=== PATIENT | male | born 1975 | race Caucasian/White ===

== ENCOUNTER → 2020-09-14 08:50 | Outpatient (BNVA) | payer MEDICARE, MEDICAID, SELFPAY | PROVIDERS: PCP Internal Medicine; Visit Provider Physician Assistant ==

== ENCOUNTER → 2020-09-26 08:03 | Outpatient (BNVA) | payer MEDICARE, MEDICAID, SELFPAY | PROVIDERS: PCP Internal Medicine; Visit Provider Surgery | DX: E66.01 Morbid (severe) obesity due to excess calories (principal); I48.91 Unspecified atrial fibrillation; I10 Essential (primary) hypertension; E78.5 Hyperlipidemia, unspecified; G47.30 Sleep apnea, unspecified; J45.909 Unspecified asthma, uncomplicated; K21.9 Gastro-esophageal reflux disease without esophagitis | CPT/HCPCS: Q3014 ==

== ENCOUNTER → 2020-11-22 10:36 | Outpatient (BNVA) | payer MEDICARE, MEDICAID, SELFPAY | PROVIDERS: PCP Internal Medicine; Referring Provider Internal Medicine; Visit Provider Physician Assistant ==

== ENCOUNTER → 2021-01-02 09:17 | Outpatient (BNVA) | payer MEDICARE, MEDICAID, SELFPAY | PROVIDERS: PCP Internal Medicine; Referring Provider Internal Medicine; Visit Provider Physician Assistant ==

== ENCOUNTER → 2021-01-04 07:48 | Outpatient (BNVA) | payer MEDICARE, MEDICAID, SELFPAY | PROVIDERS: PCP Internal Medicine; Visit Provider Surgery | CPT/HCPCS: Q3014 ==

== ENCOUNTER → 2022-07-19 08:55 | Outpatient (BNVA) | payer MEDICARE, MEDICAID, SELFPAY | PROVIDERS: PCP Internal Medicine; Referring Provider Internal Medicine; Visit Provider Physician Assistant ==

== ENCOUNTER → 2022-08-13 13:17 | Outpatient (BNVA) | payer MEDICARE, MEDICAID, SELFPAY | PROVIDERS: PCP Internal Medicine; Visit Provider Physician Assistant Surgical | DX: E66.01 Morbid (severe) obesity due to excess calories (principal); Z68.41 Body mass index [BMI] 40.0-44.9, adult | CPT/HCPCS: 99212 ==

== ENCOUNTER 2022-08-15 07:38 | Outpatient (REF) | payer MEDICARE, MEDICAID, SELFPAY ==
--- NOTE | ~2022-08-15 | XR_ITS ---
EXAMINATION: XR CHEST CLINICAL INFORMATION: Obesity COMPARISON: None available. TECHNIQUE: 2 views of the chest were obtained. FINDINGS: No significant abnormality is noted involving the heart, lungs, mediastinum, bony thorax or soft tissues. XR/XR chest 2V IMPRESSION: Unremarkable examination.
[2022-08-15 07:53] LABS: MANUAL DIFF FLAG NO
[2022-08-15 08:32] LABS: Basophils Percent Auto 0.7 % (0-2); Eosinophils Absolute Auto 0.1 X10*3/uL (0.0-0.4); Eosinophils Percent Auto 2.1 % (0-4); Hemoglobin 15.3 g/dl (14.0-18.0); Imm Gran Abs Auto 0.01 X10*3/uL (0.00-0.03); Imm Gran Pct Auto 0.2 % (0.0-0.4); Lymphocytes Absolute Auto 1.9 X10*3/uL (1.2-4.9); Lymphocytes Percent Auto 34.1 % (20-40); Mean Corpuscular HGB Conc 33.3 g/dl (31.0-36.0); Mean Corpuscular Hemoglobin 28.5 pg (27.0-33.0); Mean Corpuscular Volume 85.7 fL (80.0-98.0); Mean Platelet Volume 10.6 fL (9.4-12.4); Monocytes Absolute Auto 0.4 X10*3/uL (0.1-1.2); Monocytes Percent Auto 7.1 % (2-11); Neutrophils Absolute Auto 3.2 x10*3/uL (2.0-8.3); Neutrophils Percent Auto 55.8 % (45-73); Platelet Count 151 X10*3/uL (160-400); Red Blood Count 5.37 X10*6/uL (4.60-5.80); Red Cell Distribution Width 12.7 % (11.0-16.0); White Blood Count 5.7 X10*3/uL (4.8-10.8)
[2022-08-15 08:39] LABS: Estimated Average Glucose 258 mg/dL; Hemoglobin A1c % 10.6 %
[2022-08-15 09:12] LABS: Alanine Aminotransferase 110 U/L (0-40); Albumin Level 4.2 g/dL (3.5-5.0); Alkaline Phosphatase 69 U/L (39-117); Anion Gap 18 (12-20); Aspartate Amino Transferase 106 U/L (5-37); Bilirubin Total 0.6 mg/dL (0.0-1.0); Blood Urea Nitrogen 10 mg/dL (9-16); C Reactive Protein 0.63 mg/dL (< or = 0.50); Calcium 9.6 mg/dL (8.4-10.2); Carbon Dioxide 22 mmol/L (22-29); Chloride 104 mmol/L (96-108); Cholesterol 150 mg/dL; Estimated Glomerular Filt Rate > 60; Glucose Random 199 mg/dL (60-115); HDL Cholesterol 32 mg/dL; Iron 136 mcg/dL (45-160); LDL Cholesterol Calculated 82 mg/dl; Percent Iron Saturation 43 % (15-50); Potassium 3.9 mmol/L (3.3-5.1); Sodium 140 mmol/L (135-145); Total Iron Binding Capacity 320 mcg/dL (228-428); Total Protein 7.1 g/dL (6.5-8.0); Triglycerides 183 mg/dL; Unsaturated Iron Binding 184 ug/dL
[2022-08-15 09:40] LABS: Ferritin 474 ng/mL (20-250); Folate 12.7 ng/mL (> or = 4.0); Insulin 26 uU/mL (2-29); TSH reflex Free T4 1.43 uIU/mL (0.32-4.0); Vitamin B12 368 pg/mL (200-900); Vitamin D 25-OH Total 24.1 ng/mL (>30)
--- NOTE | 2022-08-15 11:35 | ECG_ITS ---
Test Reason : e66.01 Blood Pressure : / mmHG Vent. Rate : 088 BPM Atrial Rate : 088 BPM P-R Int : 188 ms QRS Dur : 084 ms QT Int : 376 ms P-R-T Axes : 053 -06 017 degrees QTc Int : 454 ms Normal sinus rhythm Nonspecific T wave abnormality Abnormal ECG No previous ECGs available Referred By: Luis Miguel Smith Electronically Signed By:Rudy Prado
[2022-08-17 15:48] LABS: Calcium (PTHI) 9.6 mg/dL (8.6-10.3); PTHI 70 pg/mL (16-77)
[2022-08-20 18:14] LABS: Zinc 77 mcg/dL (60-130)
[2022-08-22 15:58] LABS: Vitamin A 54 mcg/dL (38-98)
[2022-08-23 05:48] LABS: Vitamin B1 10 nmol/L (8-30)
== END 2022-08-15 07:39 | disposition home or self-care (01) ==
LOC: HO.XRAY 07:38
PROVIDERS: PCP Internal Medicine; Visit Provider Physician Assistant Surgical
DX: E66.01 Morbid (severe) obesity due to excess calories (principal); I10 Essential (primary) hypertension; E78.5 Hyperlipidemia, unspecified; E11.9 Type 2 diabetes mellitus without complications; Z20.2 Contact with and (suspected) exposure to infections with a predominantly sexual mode of transmission
CPT/HCPCS: 36415; 71046; 80053; 80061; 82306; 82607; 82728; 82746; 83036; 83525; 83540; 83970; 84425; 84443; 84590; 84630; 85025; 86140; 93005

== ENCOUNTER 2022-09-04 09:45 | Outpatient (REF) | payer MEDICARE, MEDICAID, SELFPAY ==
[2022-09-05 13:49] LABS: H Pylori Breath Test Negative (Negative)
== END 2022-09-04 09:46 | disposition home or self-care (01) ==
LOC: HO.LNP 09:45
PROVIDERS: PCP Internal Medicine; Visit Provider Physician Assistant Surgical
DX: E66.01 Morbid (severe) obesity due to excess calories (principal); E78.5 Hyperlipidemia, unspecified; I10 Essential (primary) hypertension
CPT/HCPCS: 83013; 99211; 99212

== ENCOUNTER 2023-09-03 09:53 | Outpatient (REF) | payer MEDICARE, MEDICAID, SELFPAY | END 2023-09-03 09:54 | disposition home or self-care (01) | LOC: HO.BBR 09:53 | PROVIDERS: Visit Provider Physician Assistant | DX: D75.1 Secondary polycythemia (principal) | CPT/HCPCS: 85018 ==

== ENCOUNTER 2023-09-04 08:58 | Outpatient (AMB) | payer MEDICARE, MEDICAID, SELFPAY ==
[2023-09-04 09:12] VITALS: BP 136/90; PULSE 74; RESP 18; O2SAT 96; BMI 42.4
--- NOTE | 2023-09-04 09:12 | A.OFFVIS_ITS ---
Vital Signs 09/04/23 09:12 Height 5 ft 9 in Weight 287 lb BMI 42.4 BP 136/90 H Blood Pressure Location Lt brachial Position Sitting Respiration 18 Pulse 74 Pulse Source Pulse Oximeter Pulse Oximetry (%) 96 Oxygen Delivery Method Room Air Intake Visit Reasons: Back pain Allergies miconazole [From Neosporin AF] Allergy (Verified 09/04/22 10:07) Anaphylaxis tetracycline Allergy (Verified 09/04/22 10:07) Anaphylaxis HPI Comments Details: Dinh is a very pleasant 48-year-old male who presents the office today for evaluation management of his chronic lower back pain He has been suffering with this pain for approximately 5 years, he reports it was exacerbated with a fall on some stairs 2 years ago. Pain midline lumbar without radiation down either lower extremity. Pain is worse with activity and weather. Completed physical therapy approximately 1 year ago without improvement of his symptoms. He continues with home exercise program. Patient has never been to the chiropractor or acupuncture. He had injections to lower back 2 years ago that provided only short-term relief. Tried muscle relaxers in the past but is unsure if they helped. He is currently taking ibuprofen as needed. Lidocaine patches are the only thing that provides him some improvement of his pain. Patient had recent x-ray, results as per below. He denies red flag symptoms including new loss of bowel, bladder or saddle anesthesia. In terms of muscle damage condition is described as stabbing and sharp. Pain today is rated as a 3/10, intermittent and worse in the evenings. Pain is negatively impacting patient's normal work, walking, recreational activities. [facility] Medical History Anxiety Asthma Atrial fibrillation Dementia Depression DJD (degenerative joint disease) GERD (gastroesophageal reflux disease) Hyperlipidemia Hypertension Morbid obesity Non-insulin dependent diabetes mellitus Seizure Sleep apnea with use of continuous positive airway pressure (CPAP) Surgical History History of varicose vein stripping Hx of brain surgery Hx of eye surgery Family History Mother History of artificial heart valve Glaucoma Father Heart attack Diabetes Brother Diabetes Sister No problems noted. Social History Alcohol intake: current Alcohol intake frequency: holidays/special occasions only Patient Tobacco Use Status: Never used Tobacco Substance Use Type: Marijuana Review of Systems Const All systems reviewed & are unremarkable except as noted in HPI and below Physical Exam Vital Signs: Last Vital Signs Pulse 74 09/04/23 09:12 Resp 18 09/04/23 09:12 BP 136/90 H 09/04/23 09:12 Pulse Ox 96 09/04/23 09:12 Oxygen Delivery Method Room Air 09/04/23 09:12 BMI result Body Mass Index 42.4 General: awake, alert, oriented. Answers questions appropriately. Fully engaged in examination. Skin: warm, dry, intact HEENT: Normocephalic. Hearing intact. Cardiac: External chest normal in appearance. Respiratory: No cough, audible wheezing or stridor. Abdomen: without gross distension. MS: No obvious swelling or deformities. Able to stand on bilateral tiptoes and bilateral heels.? Able to transition from sit to stand unassisted. Ambulates with bilaterally normal heel strike and toe off SLR with dorsiflexion negative bilaterally Tender to palpation midline lumbar vertebrae and lumbar paraspinal muscles. Spurling positive bilaterally Range of motion intact Bilateral lower extremity strength 5/5 Nontender over PSIS Neurological: Oriented to person, place, time and situation. Thought process intact. No gait abnormalities appreciated. Psychiatric: Appropriate mood and affect. Good judgment and insight. Results Reviewed Results Reviewed: X-ray lumbar spine results reviewed on patient's portal via his cell phone during the visit: 07/10/23: Decreased disc height L5-S1 with endplate sclerosis. No acute fracture dislocation. Spinal alignment is well-maintained without evidence of spondylolisthesis. SI joints unremarkable. Large amount of stool throughout the colon. Assessment & Plan Assessment & Plan (1) Lumbar spondylosis: Code(s): M47.816 - Spondylosis without myelopathy or radiculopathy, lumbar region Category: Medical Plan Dinh is a very pleasant 48-year-old male who presented to the office today for evaluation management his chronic lower back pain History, physical exam and provocative testing consistent with lumbar spondylosis. Patient's pain is axial in nature. Patient has exhausted greater than 6 months conservative therapy including NSAIDs, physical therapy, home exercise program, muscle relaxers and topical lidocaine patches. Diagnosis and treatment options discussed in length. Offered fluoroscopy guided diagnostic L3-L4 DR Carlton LARAB, patient declines interventional options at this time. Patient inquired about pain medication, he was advised that we do not prescribe opioid pain medications as we focus on interventional management. Lidocaine 5% patches, on for 12 hours off for 12 hours. Methocarbamol 500 mg p.o. t.i.d. as needed. Patient advised on cautions for use Patient will call the office if he would like to proceed with injections. All questions and concerns were answered, patient agrees with the plan. Follow- up for injections when patient ready to proceed. Medications: New lidocaine 5% leave on most painful area for up to 12 hrs 1 patch topical DAILY 30 ea 3RF methocarbamol May cause drowsiness. No driving while taking this medication. Do no take with alcohol or other [employer] Depressants 500 mg PO TID PRN 90 tabs 1RF muscle spasm Coding Level of Care Code New Pt Level 4 (42875) Diagnoses Lumbar spondylosis M47.816
== END 2023-09-04 09:36 | disposition home or self-care (01) ==
PROVIDERS: PCP Internal Medicine; Referring Provider Nurse Practitioner Family; Visit Provider Registered Nurse Emergency
DX: M47.816 Spondylosis without myelopathy or radiculopathy, lumbar region (principal)
CPT/HCPCS: 99204

== ENCOUNTER → 2023-09-04 08:58 | Outpatient (BNVA) | payer MEDICARE, MEDICAID, SELFPAY | PROVIDERS: PCP Internal Medicine; Referring Provider Nurse Practitioner Family; Visit Provider Registered Nurse Emergency | DX: M47.816 Spondylosis without myelopathy or radiculopathy, lumbar region (principal) | CPT/HCPCS: 99202 ==

== ENCOUNTER 2023-12-04 10:59 | Outpatient (REF) | payer MEDICARE, MEDICAID, SELFPAY | END 2023-12-04 11:00 | disposition home or self-care (01) | LOC: HO.BBR 10:59 | PROVIDERS: PCP Internal Medicine; Visit Provider Physician Assistant | DX: D75.1 Secondary polycythemia (principal) | CPT/HCPCS: 85018; 99195 ==